=== PATIENT | female | born 1955 | race Caucasian/White ===

== ENCOUNTER → 2016-07-14 | Outpatient (CLI) | payer OTHER ==
[~2016-07-14] MED LIST: ADVIN25/60 INH; CLIN300C2 PO; DICL-201 PO; EPIN0.05 OPB; ERGO500037 PO; ESCI1TAB9 PO; FURO-85 PO; METO25TA56 PO; MULT-506 PO; SPRIN/30 INH; VNTHFA/IN INH
--- NOTE | 2016-07-14 15:28 | DIAGNOSTIC IMAGING REPORT ---
CHEST 2 VIEWS ROUTINE HISTORY: J44.9 Acute chronic obstructive pulmonary disease with respirato COMPARISON: None. FINDINGS: There are low lung volumes. Mild diffuse interstitial thickening is likely chronic. No focal lung consolidations to suggest pneumonia. No pleural effusions. No pneumothorax. The heart is borderline enlarged. There is a tortuous thoracic aorta. There is right paratracheal soft tissue fullness resulting in left tracheal deviation. This demonstrates curvilinear calcification. This abnormal right paratracheal soft tissue measures 7.9 x 5.9 cm. Greater than expected hazy density within the lung bases anterior to the thoracic spine on the lateral view. This is not confirmed on the frontal view. IMPRESSION: 1. Abnormal right paratracheal soft tissue density measuring 7.9 x 5.9 cm. This results in left tracheal deviation. This could be due to a mediastinal mass, lymphadenopathy, or substernal extension of a thyroid goiter. Follow-up chest CT with contrast is recommended for confirmation. 2. Mild diffuse interstitial thickening which is likely chronic. 3. Greater than expected hazy density within the lung bases anterior to the lower thoracic spine on the lateral view only. This should also be assessed on follow-up chest CT. Electronically signed by: Nikos López M.D. 07/14/2016 3:27 PM Dictated Date/Time: 07/14/2016 3:21 PM
== END | disposition home or self-care (01) ==
LOC: C.RAD1850 15:12
PROVIDERS: ATTEND Nurse Practitioner Adult Health
DX: J44.9 Chronic obstructive pulmonary disease, unspecified (principal); R06.2 Wheezing; R91.8 Other nonspecific abnormal finding of lung field; R93.8 Abnormal findings on diagnostic imaging of other specified body structures

== ENCOUNTER → 2016-07-30 | Outpatient (CLI) | payer OTHER ==
[2016-07-30 15:40] LABS: ARTERIAL BLD GAS O2 SATURATION 90.4 % (90-95); ARTERIAL BLOOD GAS BASE EXCESS 4.4 mEq/L (-9-1.8); ARTERIAL BLOOD GAS HCO3 29 mmol/L (19-24); ARTERIAL BLOOD GAS PO2 62 mm/Hg (80-95); ARTERIAL BLOOD GAS pH 7.44 (7.35-7.45)
[2016-07-30 15:43] LABS: ALLEN TEST POS (POS); O2 ADMINISTRATION room air
== END | disposition home or self-care (01) ==
LOC: C.LAB 15:10
PROVIDERS: ATTEND Internal Medicine Pulmonary Disease
DX: J44.9 Chronic obstructive pulmonary disease, unspecified (principal)

== ENCOUNTER → 2016-09-02 | Outpatient (CLI) | payer OTHER ==
[2016-09-02 12:12] LABS: BASO % 0.1 %; BASO ABS # 0.01 K/uL (0-0.2); COMPLETE YES; EOS % 3.7 %; HEMATOCRIT 44.7 % (37-47); IG% 0.3 %; LYMPH ABS # 1.55 K/uL (1.2-3.4); MEAN CELL VOLUME 95.3 fL (80-100); MEAN CORPUSCULAR HEMOGLOBIN 30.9 pg (25-34); MEAN CORPUSCULAR HGB CONC 32.4 g/dl (32-36); MEAN PLATELET VOLUME 10.6 fL (7.4-10.4); MONO % 5.6 %; NEUT % 70.3 %; PLATELET COUNT 184 K/uL (130-400); RED BLOOD COUNT 4.69 M/uL (4.2-5.4); WHITE BLOOD COUNT 7.74 K/uL (4.8-10.8)
[2016-09-02 12:27] LABS: ALT/SGPT 31 U/L (12-78); AST/SGOT 20 U/L (15-37); BLOOD UREA NITROGEN 16 mg/dl (7-18); BUN/CREATININE RATIO 21.3 (10-20); CALCIUM 8.7 mg/dl (8.5-10.1); CARBON DIOXIDE 32 mmol/L (21-32); CHLORIDE 106 mmol/L (98-107); CREATININE 0.75 mg/dl (0.60-1.20); GLUCOSE 99 mg/dl (70-99); POTASSIUM 4.2 mmol/L (3.5-5.1); SODIUM 144 mmol/L (136-145)
[2016-09-02 12:34] LABS: ALKALINE PHOSPHATASE 39 U/L (45-117); CHOLESTEROL 212 mg/dl (0-200); CHOLESTEROL/HDL RATIO 4.2; HDL CHOLESTEROL 50 mg/dl; LDL CHOLESTEROL CALCULATED 134 mg/dl; TRIGLYCERIDES 141 mg/dl (0-150); VERY LOW DENSITY LIPOPROT CALC 28 mg/dl
[2016-09-02 12:53] LABS: ESTIMATED AVERAGE GLUCOSE 128 mg/dl; HA1C FLAG Normal (Normal)
== END | disposition home or self-care (01) ==
LOC: C.LABPBG 08:07
PROVIDERS: ATTEND Nurse Practitioner Adult Health
DX: I10 Essential (primary) hypertension (principal); E66.9 Obesity, unspecified; R60.9 Edema, unspecified; E55.9 Vitamin D deficiency, unspecified

== ENCOUNTER → 2016-10-06 | Outpatient (CLI) | payer OTHER ==
--- NOTE | 2016-10-11 06:28 | POLYSOMNOGRAPH REPORT ---
REFERRING PHYSICIAN: Erna Barrera. CLINICAL DATA: The patient is a 61-year-old female with a BMI of 46.26. She has a history of sleep apnea diagnosed at [facility] in September of 2009. Her apnea hypopnea index was 33.5. She never adapted well to CPAP. She has been having problems with hypoxia and shortness of breath. We wanted her to restart CPAP, but she could not find her machine and her home care company would not provide a new one without a sleep study. On the evening of 10/06/2016, a home sleep test was performed using a [employer] type 3 monitor. RECORDING RESULTS: Total recording time was 10.0 hours. The patient's estimated sleep time was 7.8 hours. RESPIRATORY DATA: The patient had a total of 81 respiratory events including 23 obstructive apneas and 58 hypopneas. The 4% rule was utilized for scoring hypopneas. The ERIKA was elevated at 10.3. The apnea hypopnea index was 10.3. The longest event was 55 seconds. OXIMETRY DATA: The patient had saturations as low as 55%. The mean saturation was 79%. The time below 89% was 469 minutes. HEART RATE DATA: The heart rates minimum was 58. The mean heart rate was 87 beats per minute. SNORING DATA: Snoring was present throughout the test. IMPRESSION: 1. Obstructive sleep apnea - mild. 2. Severe hypoxemia. RECOMMENDATIONS: 1. It is advised that the patient be treated with either auto CPAP or have a CPAP titration study. 2. An overnight pulse oximetry study should be done when she starts the CPAP to determine her oxygen needs. 3. Weight loss is advised in light of the severe elevation of body mass index. 4. Ideally, the patient should avoid sleeping in the supine position if possible.
== END | disposition home or self-care (01) ==
LOC: C.NEUR 08:45
PROVIDERS: ATTEND Internal Medicine Pulmonary Disease
DX: G47.33 Obstructive sleep apnea (adult) (pediatric) (principal)

== ENCOUNTER → 2016-10-15 | Outpatient (CLI) | payer OTHER ==
--- NOTE | 2016-10-15 11:20 | DIAGNOSTIC IMAGING REPORT ---
RIGHT KNEE 2 VIEWS CLINICAL HISTORY: Right knee pain. FINDINGS: AP and lateral views of the right knee are obtained. No prior studies are available for comparison at the time of dictation. The skeletal structures are osteopenic. No fracture is seen. There is mild degenerative narrowing in the medial and lateral compartments, with moderate narrowing at the patellofemoral articulation. There are tiny patellar enthesophytes. No large joint effusion is seen. The overlying soft tissues are within normal limits. IMPRESSION: Osteopenia and mild arthritic change as above. No acute bony abnormality is identified. Electronically signed by: Campbell Su M.D. 10/15/2016 11:18 AM Dictated Date/Time: 10/15/2016 11:17 AM
== END | disposition home or self-care (01) ==
LOC: C.RAD1850 11:08
PROVIDERS: ATTEND Family Medicine
DX: M25.561 Pain in right knee (principal); M85.861 Other specified disorders of bone density and structure, right lower leg

== ENCOUNTER → 2016-12-17 | Outpatient (CLI) | payer OTHER ==
[2016-12-08 07:36] VITALS: BMI 43.0
[~2016-12-17] VITALS: Ht 170.2 cm; Wt 124.6 kg
[~2016-12-17] MED LIST changes: +CEFAZOLIN 3000 MG/65 ML D5W IV SCH; +LACTATED RINGER'S 1000ML 1,000 ML IV SCH
[2016-12-17 09:36] VITALS: Ht 170.2 cm; Wt 124.6 kg
--- NOTE | 2016-12-17 09:58 | PAT Medication Instructions ---
Service Date Dec 17, 2016. Current Home Medication List Albuterol Hfa (Ventolin Hfa), 2-4 PUFFS INH Q6H PRN for Shortness of Breath Clindamycin Hcl (Cleocin), 300 MG PO Q6H Diclofenac (Voltaren), 75 MG PO BID PRN for Pain Epinastine Hcl (Ophth) (Elestat 0.05%), 1 DROPS OPB BID Ergocalciferol (Vitamin D 33659 Unit), 50,000 UNIT PO WK Fluticasone Prop/Salmeterol (Advair Diskus 250/50 60 Dose), 1 PUFF INH BID Furosemide (Lasix), 20 MG PO QAM Metoprolol Tartrate (Lopressor) (Lopressor), 25 MG PO BID Multivitamin (Multivitamin), 1 TAB PO QAM Tiotropium Virgie (Spiriva Handihaler), 1 CAP INH QAM Medication Instructions For Your Scheduled Surgery Ergocalciferol (Vitamin D 29145 Unit), 50,000 UNIT PO WK (continue as directed) - Check with surgeon for instructions: Diclofenac (Voltaren), 75 MG PO BID PRN for Pain - Hold the following medications the morning of surgery: Multivitamin (Multivitamin), 1 TAB PO QAM Furosemide (Lasix), 20 MG PO QAM - Take the following medications the morning of surgery with a sip of water: Tiotropium Virgie (Spiriva Handihaler), 1 CAP INH QAM Metoprolol Tartrate (Lopressor) (Lopressor), 25 MG PO BID Epinastine Hcl (Ophth) (Elestat 0.05%), 1 DROPS OPB BID Albuterol Hfa (Ventolin Hfa), 2-4 PUFFS INH Q6H PRN for Shortness of Breath ( okay to use; bring with you to hospital morning of surgery) Clindamycin Hcl (Cleocin), 300 MG PO Q6H Lexapro QAM - Take the following medications as scheduled the night before surgery: Metoprolol Tartrate (Lopressor) (Lopressor), 25 MG PO BID Epinastine Hcl (Ophth) (Elestat 0.05%), 1 DROPS OPB BID Albuterol Hfa (Ventolin Hfa), 2-4 PUFFS INH Q6H PRN for Shortness of Breath (if needed) Clindamycin Hcl (Cleocin), 300 MG PO Q6H If you have any questions please call us at [phone] or [phone] or [phone]
[2016-12-17 10:42] LABS: BASO % 0.1 %; BASO ABS # 0.01 K/uL (0-0.2); COMPLETE YES; EOS % 3.5 %; HEMATOCRIT 44.8 % (37-47); IG% 0.1 %; LYMPH % 18.5 %; LYMPH ABS # 1.33 K/uL (1.2-3.4); MEAN CELL VOLUME 94.3 fL (80-100); MEAN CORPUSCULAR HGB CONC 33.9 g/dl (32-36); MEAN PLATELET VOLUME 10.5 fL (7.4-10.4); MONO % 6.6 %; NEUT % 71.2 %; PLATELET COUNT 191 K/uL (130-400); RED BLOOD COUNT 4.75 M/uL (4.2-5.4); WHITE BLOOD COUNT 7.17 K/uL (4.8-10.8)
== END ==
LOC: C.LAB 09:30 → EDSTATUS 12-27 07:30 → C.PAT 12-27 14:24
DX: Z01.812 Encounter for preprocedural laboratory examination (principal); Z53.9 Procedure and treatment not carried out, unspecified reason

== ENCOUNTER → 2017-01-26 | Day surgery (SDC) | payer OTHER ==
[2016-12-08 07:51] VITALS: BMI 43.0
[~2017-01-26] VITALS: Ht 167.6 cm; Wt 122.7 kg
[~2017-01-26] MED LIST changes: -CEFAZOLIN 3000 MG/65 ML D5W IV SCH; -LACTATED RINGER'S 1000ML 1,000 ML IV SCH; +SODIUM CHLORIDE 0.9% 500ML 500 ML IV ONE
[2017-01-26 14:37] VITALS: Ht 167.6 cm; Wt 122.7 kg
--- NOTE | 2017-01-26 14:51 | Endo History and Physical ---
History & Physical Date of Service: Jan 26, 2017. Chief Complaint: HX POLYP Referring Physician: Noreen ANN History of Present Illness 61 yo CF who presents for colonoscopy secondary to history of colon polyps. Past Surgical History Hx Cardiac Surgery: No Hx Internal Defibrillator: No Hx Pacemaker: No Hx Abdominal Surgery: Yes (JOHN, CAROLIN) Hx of Implantable Prosthesis: No Hx Post-Op Nausea and Vomiting: No Hx Cancer Surgery: No Hx Thoracic Surgery: No Hx Orthopedic: No Hx Urinary Tract Surgery: No Family History IBD Social History Smoking Status: Former Smoker Hx Substance Use: No Hx Alcohol Use: Yes (2 DRINKS 3-4 X'S WEEKLY) Allergies Coded Allergies: Codeine (Verified Allergy, Unknown, N/V, 01/26/17) Current Medications Reported Home Medications Medications Dose Route/Sig Max Daily Dose Days Date Category Dose Instructions Lexapro (Escitalopram Oxalate) 10 Mg Tab 10 Mg PO QAM 12/17/16 Reported Vitamin D 42505 Unit (Ergocalciferol) 50,000 Unit Cap 50,000 Unit PO WK 12/08/16 Reported "TAKING LESS FREQUENT DURING SUMMER MONTHS" Ventolin Hfa (Albuterol) 200 Puffs/08358 Mcg Aers 2-4 Puffs INH Q6H PRN 12/08/16 Reported Spiriva Handihaler (Tiotropium [place]) 30 Puff/540 Mcg Aerp 1 Cap INH QAM 12/08/16 Reported Multivitamin (Multivitamins) Tab 1 Tab PO QAM 12/08/16 Reported Lopressor (Metoprolol Tartrate) 25 Mg Tab 25 Mg PO BID 12/08/16 Reported Lasix (Furosemide) 20 Mg Tab 20 Mg PO QAM 12/08/16 Reported Elestat 0.05% (Epinastine Hcl (Ophth)) 0.05 % Titus 1 Drops OPB BID 12/08/16 Reported Voltaren (Diclofenac Sodium) 75 Mg Tabcr 75 Mg PO BID PRN 12/08/16 Reported WITH FOOD Advair Diskus 250/50 60 Dose (Fluticasone Prop/Salmeterol) 1 Ea Aerp 1 Puff INH BID 12/08/16 Reported Vital Signs Weight (Kilograms): 122.73 Height (Feet): 5 Height (Inches): 6 Physical Exam General Appearance: WD/WN, no apparent distress Respiratory/Chest: Auscultation: breath sounds normal Cardiovascular: Heart Auscultation: RRR Abdomen: Bowel Sounds: normal Inspection & Palpation: soft, non-distended, no tenderness, guarding & rebound Assessment and Plan Assessment: 61 yo CF who presents for colonoscopy secondary to history of colon polyps. Plan: Proceed with colonoscopy.
--- NOTE | 2017-01-26 15:42 | Discharge Instructions ---
Endoscopy Patient Instructions Date / Procedure(s) Performed Jan 26, 2017. Colonoscopy Allergy Information Coded Allergies: Codeine (Verified Allergy, Unknown, N/V, 01/26/17) Discharge Date / Findings Jan 26, 2017. Colon polyps Diverticulosis Internal hemorrhoids Medication Instructions Restart Stopped Medication(s): OK to resume all medications today as prescribed Reported Home Medications Medications Dose Route/Sig Max Daily Dose Days Date Category Dose Instructions Lexapro (Escitalopram Oxalate) 10 Mg Tab 10 Mg PO QAM 12/17/16 Reported Vitamin D 63940 Unit (Ergocalciferol) 50,000 Unit Cap 50,000 Unit PO WK 12/08/16 Reported "TAKING LESS FREQUENT DURING SUMMER MONTHS" Ventolin Hfa (Albuterol) 200 Puffs/89438 Mcg Aers 2-4 Puffs INH Q6H PRN 12/08/16 Reported Spiriva Handihaler (Tiotropium [place]) 30 Puff/540 Mcg Aerp 1 Cap INH QAM 12/08/16 Reported Multivitamin (Multivitamins) Tab 1 Tab PO QAM 12/08/16 Reported Lopressor (Metoprolol Tartrate) 25 Mg Tab 25 Mg PO BID 12/08/16 Reported Lasix (Furosemide) 20 Mg Tab 20 Mg PO QAM 12/08/16 Reported Elestat 0.05% (Epinastine Hcl (Ophth)) 0.05 % Titus 1 Drops OPB BID 12/08/16 Reported Voltaren (Diclofenac Sodium) 75 Mg Tabcr 75 Mg PO BID PRN 12/08/16 Reported WITH FOOD Advair Diskus 250/50 60 Dose (Fluticasone Prop/Salmeterol) 1 Ea Aerp 1 Puff INH BID 12/08/16 Reported Provider Instructions Activity Restrictions - No exercising or heavy lifting for 24 hours. - Do not drink alcohol the day of the procedure. - Do not drive a car or operate machinery until the day after the procedure. - Do not make any important decisions or sign important papers in 24 hours after the procedure. Following Day: - Return to full activity which may include returning to work/school. Diet Start your diet with liquids and light foods (jello, soup, juice, toast). Then eat your usual diet if not nauseated. Treatment For Common After Affects For mild abdominal pain, bloating, or excessive gas: - Rest - Eat lightly - Lie on right side Follow-Up Information Follow-up with Noreen ANN as scheduled Anesthesia Information What You Should Know You have had a procedure that required some medicine to reduce anxiety and discomfort. This treatment is called moderate sedation. After receiving the treatment, you may be sleepy, but you will be able to breathe on your own. The effects of the treatment may last for several hours. Follow these instructions along with Activity/Diet recommendations noted above: * Do NOT do anything where dizziness or clumsiness would be dangerous. * Rest quietly at home today, then you can be up and about tomorrow. * Have a responsible person stay with you the rest of today. * You may have had an I.V. today. If so, you may take the dressing off later today. Recommendations Call your doctor if: * Trouble breathing * Continuous vomiting for more than 24 hours * Temperature above 101 degrees * Severe abdominal pain or bloating * Pain not relieved by pain medicine ordered * There is increased drainage or redness from any incision * A large amount of rectal bleeding greater than 2-3 tablespoons. (If you had a polyp/s removed or have hemorrhoids, a small amount of blood - from the rectum is to be expected.) * You have any unanswered questions or concerns. IN THE EVENT OF A SERIOUS EMERGENCY, GO TO THE NEAREST EMERGENCY ROOM Your discharge instructions were prepared by provider Connor Bustillo. Patient Instructions Signature Page Maryse Ector Patient (or Guardian) Signature/Date: I have read and understand the instructions given to me by my caregivers. Caregiver/RN/Doctor Signature/Date: The above-named patient and/or guardian has received patient instructions on this date. + Original Patient Signature Page (only) stays with chart. Please make copy for patient.
--- NOTE | 2017-01-26 15:46 | GI REPORT ---
Procedure Date: 01/26/2017 2:51 PM Procedure: Colonoscopy Indications: Screening for colorectal malignant neoplasm Medicines: Monitored Anesthesia Care Complications: No immediate complications. Estimated Blood Loss: Estimated blood loss: none. Procedure: Pre-Anesthesia Assessment: - Prior to the procedure, a History and Physical was performed, and patient medications and allergies were reviewed. The patient's tolerance of previous anesthesia was also reviewed. The risks and benefits of the procedure and the sedation options and risks were discussed with the patient. All questions were answered, and informed consent was obtained. Prior Anticoagulants: The patient has taken no previous anticoagulant or antiplatelet agents. ASA Grade Assessment: III - A patient with severe systemic disease. After reviewing the risks and benefits, the patient was deemed in satisfactory condition to undergo the procedure. After I obtained informed consent, the scope was passed under direct vision. Throughout the procedure, the patient's blood pressure, pulse, and oxygen saturations were monitored continuously. The scope was introduced through the anus and advanced to the cecum, identified by appendiceal orifice and ileocecal valve. The colonoscopy was performed without difficulty. The patient tolerated the procedure well. The quality of the bowel preparation was good. The ileocecal valve, appendiceal orifice, and rectum were photographed. Findings: Four sessile polyps were found in the sigmoid colon, in the descending colon and in the ascending colon. The polyps were 5 to 7 mm in size. These polyps were removed with a hot snare. Resection and retrieval were complete. Multiple small-mouthed diverticula were found in the sigmoid colon and in the descending colon. Non-bleeding internal hemorrhoids were found during retroflexion. The hemorrhoids were small. Impression: - Four 5 to 7 mm polyps in the sigmoid colon, in the descending colon and in the ascending colon, removed with a hot snare. Resected and retrieved. - Diverticulosis in the sigmoid colon and in the descending colon. - Non-bleeding internal hemorrhoids. Recommendation: - Resume previous diet. - Continue present medications. - Repeat colonoscopy for surveillance based on pathology results. - Return to primary care physician as previously scheduled. Connor Bustillo DO 01/26/2017 3:46:05 PM This report has been signed electronically. Note Initiated On: 01/26/2017 2:51 PM I attest to the content of the Intraoperative Record and orders documented therein, exceptions below
--- NOTE | 2017-01-26 16:11 | Anesthesiology Progress Note ---
Anesthesia Post Op Note Date & Time Jan 26, 2017 at 16:11 Vital Signs Pain Intensity: 0 Vital Signs Past 12 Hours Date Time Temp Pulse Resp B/P (MAP) Pulse Ox O2 Delivery O2 Flow Rate FiO2 01/26/17 16:01 85 20 141/74 (96) 93 Room Air 01/26/17 15:46 84 20 144/80 (101) 92 Room Air 01/26/17 14:49 36.9 88 20 169/99 (122) 92 Room Air Notes Mental Status: alert / awake / arousable, participated in evaluation Pt Amnestic to Procedure: Yes Nausea / Vomiting: adequately controlled Pain: adequately controlled Airway Patency, RR, SpO2: stable & adequate BP & HR: stable & adequate Hydration State: stable & adequate Anesthetic Complications: no major complications apparent
[2017-01-26 16:16] VITALS: BP 122/87; PULSE 84; O2SAT 93
== END | disposition home or self-care (01) ==
LOC: C.GI 13:47
PROVIDERS: ATTEND Internal Medicine
DX: Z12.11 Encounter for screening for malignant neoplasm of colon (principal); D12.2 Benign neoplasm of ascending colon; D12.4 Benign neoplasm of descending colon; D12.5 Benign neoplasm of sigmoid colon; K64.8 Other hemorrhoids; Z86.010 Personal history of colon polyps; Z87.891 Personal history of nicotine dependence; Z79.899 Other long term (current) drug therapy; K57.30 Diverticulosis of large intestine without perforation or abscess without bleeding

== ENCOUNTER → 2017-07-27 | Outpatient (CLI) | payer OTHER ==
[~2017-07-27] MED LIST changes: -CLIN300C2 PO; -SODIUM CHLORIDE 0.9% 500ML 500 ML IV ONE
--- NOTE | 2017-07-27 09:14 | DIAGNOSTIC IMAGING REPORT ---
ABDOMEN LIMITED (US) CLINICAL HISTORY: 61 years-old Female presenting with R10.12 Abdominal pain, acute, left upper [id number]. TECHNIQUE: Real-time grayscale and limited color Doppler ultrasound imaging of the abdomen limited to the left upper quadrant was performed. COMPARISON: None. FINDINGS: Spleen: Normal echogenicity and size, measuring 11.4 cm in maximal sagittal dimension. Normal color Doppler flow at the splenic hilum. Left kidney: Normal appearance and size, measuring 12.5 cm. No hydronephrosis. Normal perfusion. IMPRESSION: Normal sonographic examination of the left upper quadrant. Electronically signed by: Hu Travis M.D. 07/27/2017 9:13 AM Dictated Date/Time: 07/27/2017 9:09 AM
[2017-07-27 09:33] LABS: BASO % 0.2 %; BASO ABS # 0.02 K/uL (0-0.2); EOS % 3.7 %; EOS ABS # 0.31 K/uL (0-0.5); HEMATOCRIT 47.8 % (37-47); HEMOGLOBIN 15.6 g/dL (12.0-16.0); IG# 0.03 K/uL (0.00-0.02); LYMPH % 18.3 %; LYMPH ABS # 1.53 K/uL (1.2-3.4); MEAN CELL VOLUME 96.4 fL (80-100); MEAN CORPUSCULAR HEMOGLOBIN 31.5 pg (25-34); MEAN CORPUSCULAR HGB CONC 32.6 g/dl (32-36); MEAN PLATELET VOLUME 10.6 fL (7.4-10.4); MONO % 6.8 %; MONO ABS # 0.57 K/uL (0.11-0.59); NEUT % 70.6 %; NEUT ABS # 5.91 K/uL (1.4-6.5); PLATELET COUNT 203 K/uL (130-400); RED CELL DISTRIBUTION WIDTH CV 13.5 % (11.5-14.5); RED CELL DISTRIBUTION WIDTH SD 47.3 fL (36.4-46.3); WHITE BLOOD COUNT 8.37 K/uL (4.8-10.8)
[2017-07-27 09:48] LABS: HEMOGLOBIN A1C 5.9 % (4.5-5.6)
[2017-07-27 09:51] LABS: ALBUMIN 3.4 gm/dl (3.4-5.0); ALT/SGPT 29 U/L (12-78); AST/SGOT 15 U/L (15-37); BLOOD UREA NITROGEN 15 mg/dl (7-18); CALCIUM 9.2 mg/dl (8.5-10.1); CARBON DIOXIDE 29 mmol/L (21-32); CREATININE 0.74 mg/dl (0.60-1.20); GLUCOSE 112 mg/dl (70-99); LIPASE 160 U/L (73-393); POTASSIUM 4.2 mmol/L (3.5-5.1); SODIUM 139 mmol/L (136-145)
[2017-07-27 10:02] LABS: ALKALINE PHOSPHATASE 45 U/L (45-117); CHOLESTEROL 236 mg/dl (0-200); LDL CHOLESTEROL CALCULATED 146 mg/dl; TOTAL PROTEIN 7.4 gm/dl (6.4-8.2)
== END | disposition home or self-care (01) ==
LOC: C.ULTR 08:27
PROVIDERS: ATTEND Nurse Practitioner Adult Health
DX: Z00.00 Encounter for general adult medical examination without abnormal findings (principal); R10.12 Left upper quadrant pain; R73.03 Prediabetes; E04.9 Nontoxic goiter, unspecified; E55.9 Vitamin D deficiency, unspecified; I10 Essential (primary) hypertension

== ENCOUNTER → 2017-08-22 | Outpatient (CLI) | payer OTHER ==
--- NOTE | 2017-08-22 12:02 | DIAGNOSTIC IMAGING REPORT ---
CT LUNG SCREENING, LOW DOSE WITH COMPUTER-AIDED DETECTION (CAD) CLINICAL HISTORY: Smoking history. Lung cancer screening. COMPARISON STUDY: Chest x-ray dated 07/14/2016. CT DOSE: 76.98 mGy.cm TECHNIQUE: Low-dose helical CT was acquired without intravenous contrast from lung apices to bases and reconstructed at 2.5 mm every 2 mm. CAD was utilized for this study. A dose lowering technique was utilized adhering to the principles of ALARA. FINDINGS: Thyroid: The thyroid gland is markedly enlarged and heterogeneous, containing numerous calcifications. Thoracic aorta: The thoracic aorta is normal in course and caliber, noting standard 3 vessel arch anatomy. Heart: The heart is enlarged and without pericardial effusion. There are scattered coronary artery calcifications. Lungs and pleural spaces: Mild paraseptal emphysematous change is identified. A fat-containing Bochdalek hernia is noted at the right lung base. No airspace consolidation or pleural effusion is seen. Scarring/atelectasis is noted in the lingula. No concerning pulmonary lesion is identified. The trachea and central airways are clear. Mediastinum: There is a heterogeneous mass lesion identified in the superior mediastinum to the right of the trachea. This measures approximately 6.5 x 8 x 6 cm and contains coarse calcifications. This likely represents mediastinal extension of a large thyroid goiter. Emelia: Not well assessed without IV contrast. Axilla: Clear. Upper abdomen: There is a small hiatal hernia. The spleen is mildly enlarged measuring 14.3 cm and length Skeletal structures: The skeletal structures are osteopenic. Degenerative change and hyperkyphosis are noted in the thoracic spine. A 1.9 cm sclerotic focus in the body of L1 likely represent a bone island. There are no lytic or blastic osseous lesions. IMPRESSION: 1. Heart and likely mild emphysema. 2. No concerning pulmonary lesion is identified. 3. There is no airspace consolidation or pleural effusion. 4. Thyroid goiter. 5. A large right-sided superior mediastinal mass lesion likely represents mediastinal extension of a thyroid goiter. CAD FINDINGS: Overall Lung RADS Category: 1 Lung RADS Management Recommendation: Continue annual lung cancer screening. Lung RADS Follow Up Date: 2018-08-22 Lung RADS Nodule ID: Electronically signed by: Campbell Su M.D. 08/22/2017 12:00 PM Dictated Date/Time: 08/22/2017 11:42 AM
== END | disposition home or self-care (01) ==
LOC: C.CTS 11:24
PROVIDERS: ATTEND Internal Medicine Pulmonary Disease
DX: Z87.891 Personal history of nicotine dependence (principal); Z12.2 Encounter for screening for malignant neoplasm of respiratory organs; E04.9 Nontoxic goiter, unspecified